=== PATIENT | male | born 1965 ===

== ENCOUNTER 2018-09-29 01:22 | Emergency (ER) | payer BC ==
[2018-09-29] MEDS ORDERED: Ketorolac 15 MG/ML SDV IVPUSH ONE (01:40)
[2018-09-29] MEDS ORDERED: Sodium Chloride 0.9% 10 ML Syringe FLUSH PRN (01:40)
[2018-09-29] MEDS ORDERED: Ondansetron 4 MG/2 ML SDV IVPUSH ONE (01:41)
[2018-09-29] MEDS ORDERED: methylPREDNISolone Sodium Succinate 125 MG/2 ML SDV IVPUSH ONE (01:41)
[2018-09-29] MEDS ORDERED: HYDROmorphone 1 MG/ML Syringe IVPUSH ONE (01:41)
[2018-09-29] MEDS ORDERED: Sodium Chloride 0.9% 1,000 ML IV SCH (01:45)
[2018-09-29 02:28] LABS: CHLORIDE,CL 104 mmol/L (98-107); SODIUM,NA 143 mmol/L (136-145)
[2018-09-29 02:29] LABS: ANION GAP 13.7 mmol/L (10-20)
--- NOTE | 2018-09-29 02:45 | EDM.PDOC ---
ED HPI GENERAL MEDICAL PROBLEM - General Chief Complaint: Flank Pain Stated Complaint: Right Flank Pain Time Seen by Provider: 09/29/18 01:39 Source of Information: Reports: Patient History Limitations: Reports: No Limitations - History of Present Illness INITIAL COMMENTS - FREE TEXT/NARRATIVE: Patient presents to the ED with complaints of bilateral lower back pain that started today. He states he was moving equipment yesterday and does have history of lower back pain chronically. Denies chest pain, SOB, abdominal pain. Also denies blood in urine or stools, no dysuria, frequency, or urine retention. No fever, chills, or general malaise. Onset: Today, Gradual Duration: Intermittent Location: Reports: Back Right Flank Pain Pain Score (Numeric/FACES): 5 - Related Data Allergies Allergy/AdvReac Type Severity Reaction Status Date / Time No Known Allergies Allergy Verified 09/29/18 01:35 Home Meds: Home Meds . [No Known Home Meds] 09/29/18 [History] ED ROS GENERAL - Review of Systems Review Of Systems: See Below Constitutional: Reports: No Symptoms HEENT: Reports: No Symptoms Respiratory: Reports: No Symptoms Cardiovascular: Reports: No Symptoms Endocrine: Reports: No Symptoms GI/Abdominal: Reports: No Symptoms : Reports: No Symptoms Musculoskeletal: Reports: Back Pain Skin: Reports: No Symptoms Neurological: Reports: No Symptoms Psychiatric: Reports: No Symptoms Hematologic/Lymphatic: Reports: No Symptoms Immunologic: Reports: No Symptoms ED EXAM,LOWER BACK PAIN/INJURY - Physical Exam Exam: See Below Exam Limited By: No Limitations General Appearance: Alert, WD/WN, No Apparent Distress Eye Exam: Bilateral Eye: EOMI, Normal Inspection Nose: Normal Inspection, Normal Mucosa, No Blood Throat/Mouth: Normal Inspection, Normal Lips, Normal Teeth, Normal Gums, Normal Oropharynx, Normal Voice, No Airway Compromise Head: Atraumatic, Normocephalic Neck: Normal Inspection, Supple, Non-Tender, Full Range of Motion Respiratory/Chest: No Respiratory Distress, Lungs Clear, Normal Breath Sounds, No Accessory Muscle Use, Chest Non-Tender Cardiovascular: Normal Peripheral Pulses, Regular Rate, Rhythm, No Edema, No Gallop, No JVD, No Murmur, No Rub GI/Abdominal: Normal Bowel Sounds, Soft, Non-Tender, No Organomegaly, No Distention, No Abnormal Bruit, No Mass Back Exam: Normal Inspection, Full Range of Motion, NT Extremities: Normal Inspection, Normal Range of Motion, Non-Tender, No Pedal Edema, Normal Capillary Refill Neurological: Alert, Normal Mood/Affect, Normal Dorsiflexion, CN II-XII Intact, Normal Plantar Flexion, Normal Gait, Normal Reflexes, No Motor/Sensory Deficits , Oriented x 3 Course - Vital Signs Last Recorded V/S: Last Vital Signs Temp 36.6 C 09/29/18 01:36 Pulse 97 09/29/18 01:36 Resp 14 09/29/18 01:36 BP 151/82 H 09/29/18 02:42 Pulse Ox 96 09/29/18 01:36 - Orders/Labs/Meds Labs: Laboratory Tests 09/29/18 09/29/18 09/29/18 Range/Units 02:05 02:05 02:27 WBC 11.6 H (4.0-10.0) x10^3/uL RBC 4.74 (4.5-6.0) x10^6/uL Hgb 16.2 (14.0-18.0) g/dL Hct 47.5 (40.0-52.0) % MCV 100.2 H (78.0-93.0) fL MCH 34.2 H (26.0-32.0) pg MCHC 34.1 (32.0-36.0) g/dL RDW Coeff of Cristian 12.6 (10.0-15.0) % Plt Count 267 (130-400) x10^3/uL Neut % (Auto) 55.2 (50.0-80.0) % Lymph % (Auto) 31.4 (25.0-50.0) % [place] % (Auto) 10.5 (2.0-11.0) % Eos % (Auto) 2.4 (0.0-4.0) % Baso % (Auto) 0.5 (0.2-1.2) % Sodium 143 (136-145) mmol/L Potassium 3.7 (3.5-5.1) mmol/L Chloride 104 (98-107) mmol/L Carbon Dioxide 29 (21-32) mmol/L Anion Gap 13.7 (10-20) mmol/L BUN 14 (7-18) mg/dL Creatinine 0.9 (0.70-1.30) mg/dL Est Cr Clr Drug Dosing 106.04 mL/min Estimated GFR (MDRD) > 60 Glucose 112 H (74-106) mg/dL Calcium 9.1 (8.5-10.1) mg/dL Corrected Calcium 9.10 (8.5-10.1) mg/dL Total Bilirubin 0.5 (0.2-1.0) mg/dL AST 18 (15-37) U/L ALT 39 (16-63) U/L Alkaline Phosphatase 80 (46-116) U/L Total Protein 7.2 (6.4-8.2) g/dL Albumin 4.0 (3.4-5.0) g/dL Globulin 3.2 Albumin/Globulin Ratio 1.25 Urine Color Yellow (YELLOW) Urine Appearance Clear (CLEAR) Urine pH 6.5 (5.0-8.0) Ur Specific [place] 1.020 Urine Protein Negative (NEGATIVE) mg/dL Urine Glucose (UA) Negative (NEGATIVE) mg/dL Urine Ketones Negative (NEGATIVE) mg/dL Urine Occult Blood Trace-lysed H (NEGATIVE) Urine Nitrite Negative (NEGATIVE) Urine Bilirubin Negative (NEGATIVE) Urine Urobilinogen 0.2 (0.2) EU/dL Ur Leukocyte Esterase Negative (NEGATIVE) Urine RBC Not seen (NOT SEEN) /HPF Urine WBC Not seen (NOT SEEN) /HPF Ur Squamous Epith Cells Not seen (NEGATIVE) /HPF Amorphous Sediment Few Urine Bacteria Not seen (NEGATIVE) /HPF Urine Mucus Not seen (NEGATIVE) /LPF Meds: Medications Discontinued Medications Generic Name Dose Route Start Last Admin Trade Name Freq PRN Reason Stop Dose Admin Cyclobenzaprine HCl 1 packet 09/29/18 02:57 09/29/18 03:03 Take Home: Cyclobenzaprine 10 Mg, 4 Tab Pack PO 09/29/18 02:58 1 packet ONETIME ONE Administration Hydromorphone HCl 1 mg 09/29/18 01:41 09/29/18 02:46 Dilaudid IVPUSH 09/29/18 01:42 Not Given ONETIME ONE Sodium Chloride 1,000 mls @ 999 mls/hr 09/29/18 01:45 09/29/18 02:24 Normal Saline IV 999 mls/hr ASDIRECTED THERESA Administration Ketorolac Tromethamine 15 mg 09/29/18 01:40 09/29/18 02:13 Toradol IVPUSH 09/29/18 01:41 15 mg ONETIME ONE Administration Methylprednisolone Sodium Succinate 125 mg 09/29/18 01:41 09/29/18 02:13 Solu-Medrol IVPUSH 09/29/18 01:42 125 mg ONETIME ONE Administration Ondansetron HCl 4 mg 09/29/18 01:41 09/29/18 02:46 Zofran IVPUSH 09/29/18 01:42 Not Given ONETIME ONE Prednisone 1 packet 09/29/18 02:57 09/29/18 03:03 Take Home: Prednisone 20 Mg, 2 Tab Pack PO 09/29/18 02:58 1 packet ONETIME ONE Administration Sodium Chloride 10 ml 09/29/18 01:40 Saline Flush FLUSH ASDIRECTED PRN Keep Vein Open - Radiology Interpretation Free Text/Narrative:: x-ray negative for acute injury/fracture/subluxation lab work negative for UTI or pyelonephritis Departure - Departure Time of Disposition: 03:13 Disposition: Home, Self-Care 01 Condition: Good Clinical Impression: Low back strain Qualifiers: Encounter type: initial encounter Qualified Code(s): S39.012A - Strain of muscle, fascia and tendon of lower back, initial encounter - Discharge Information *PRESCRIPTION DRUG MONITORING PROGRAM REVIEWED*: No *COPY OF PRESCRIPTION DRUG MONITORING REPORT IN PATIENT GRISELDA: No Instructions: Low Back Strain Referrals: PCP,Unobtain [Primary Care Provider] - Forms: ED Department Discharge Additional Instructions: Plan 1. Alternate ibuprofen and tylenol for pain relief. Alternate heat and cold 2. Take the flexeril every 8 hours, take prednisone one time a day 3. Follow up with primary care. You may need an MRI of your lower back. 4. Call with any questions or concerns - Problem List & Annotations (1) Low back strain SNOMED Code(s): 880151459 Code(s): S39.012A - STRAIN OF MUSCLE, FASCIA AND TENDON OF LOWER BACK, INIT Status: Acute Priority: Low Qualifiers: Encounter type: initial encounter Qualified Code(s): S39.012A - Strain of muscle, fascia and tendon of lower back, initial encounter - Problem List Review Problem List Initiated/Reviewed/Updated: Yes - Assessment/Plan Assessment:: Plan 1. Alternate ibuprofen and tylenol for pain relief. Alternate heat and cold 2. Take the flexeril every 8 hours, take prednisone one time a day 3. Follow up with primary care. You may need an MRI of your lower back. 4. Call with any questions or concerns
[2018-09-29] MEDS ORDERED: Take Home: Cyclobenzaprine 10 MG Tab, 4 Tab Pack PO ONE (02:57)
[2018-09-29] MEDS ORDERED: Take Home: predniSONE 20 MG, 2 Tab Pack PO ONE (02:57)
--- NOTE | 2018-09-29 07:46 | CR ---
[id number] RAD/RAD Lumbar Spine 2-3V Exam: RAD Lumbar Spine 2-3V Indication:MOVING THINGS, BACK INJURY. Comparison: No prior imaging for comparison. Discussion: No acute fracture or compression deformity. No spondylolisthesis. Mild changes of spondylosis. Impression: No acute findings. Leonel Winston MD 09/29/18 0745 Thank you for allowing us to participate in the care of your patient.
== END 2018-09-29 03:13 | disposition home or self-care (01) ==
LOC: VM.ED 01:22
DX: S39.012A Strain of muscle, fascia and tendon of lower back, initial encounter (principal); X58.XXXA Exposure to other specified factors, initial encounter
CPT/HCPCS: 36415; 72100; 80053; 81001; 85025; 96361; 96374; 96375; 99283; A9270; J1885; J2930; J7030

== ENCOUNTER 2020-01-11 20:59 | Emergency (ER) | payer BC ==
--- NOTE | 2020-01-11 23:47 | EDM.PDOC ---
ED HPI GENERAL MEDICAL PROBLEM - General Chief Complaint: Abdominal Pain Stated Complaint: STOMACH Time Seen by Provider: 01/11/20 22:00 Source of Information: Reports: Patient History Limitations: Reports: No Limitations - History of Present Illness INITIAL COMMENTS - FREE TEXT/NARRATIVE: Patient comes emergency department today from home with complaints of abdominal pain. This patient for the past 2 days has had increasing waves of cramping intermittent abdominal pain. Primarily in the right lower quadrant. He typically has a bowel movement every day he has not had 1 for the last 2 days. He does not feel bloated. He does not feel distended. He has had no nausea or vomiting. No fever or chills. He has no other pain in his abdomen other than the right lower quadrant. The pain is not constant. He did take some Ex-Lax earlier today thinking that he was constipated he had quite a bit much more pain but did not have a bowel movement. Said no recent surgeries on his abdomen and no surgeries in the past. He is never had a colonoscopy. No hematuria dysuria or urinary frequency. No chest pain no shortness of breath or difficulty breathing. No cough or congestion. No hematuria dysuria or urinary frequency. NO COVID exposure no COVID symptoms. Abdominal Pain Pain Score (Numeric/FACES): 2 - Related Data Allergies Allergy/AdvReac Type Severity Reaction Status Date / Time aspirin Allergy Nausea and Verified 01/12/20 00:20 Vomiting Home Meds: Home Meds . [No Known Home Meds] 09/29/18 [History] Past Medical History - Past Surgical History HEENT Surgical History: Reports: Tonsillectomy, Other (See Below) Other HEENT Surgeries/Procedures: [place] Teeth ED ROS GENERAL - Review of Systems Review Of Systems: Comprehensive ROS is negative, except as noted in HPI. ED EXAM, GI/ABD - Physical Exam Exam: See Below Exam Limited By: No Limitations General Appearance: Alert, WD/WN, No Apparent Distress, Obese (large obese abd. ) Respiratory/Chest: No Respiratory Distress, Lungs Clear Cardiovascular: Normal Peripheral Pulses, Regular Rate, Rhythm GI/Abdominal Exam: Normal Bowel Sounds, Soft, Pelvis Stable, Tender (He has some mild tenderness of the right lower quadrant. No rebound or guarding. The rest of the abdomen is soft nontender nondistended.). No: Distended, Guarding, Rigid, Rebound, Hernia (Male) Exam: Deferred Rectal (Males) Exam: Deferred Back Exam: Normal Inspection, Full Range of Motion Extremities: Normal Inspection, Normal Range of Motion, Non-Tender, No Pedal Edema, Normal Capillary Refill Neurological: Alert, Oriented, Normal Cognition, Normal Gait, No Motor/Sensory Deficits Psychiatric: Normal Affect, Normal Mood Skin Exam: Warm, Dry, Intact, Normal Color, No Rash Course - Vital Signs Last Recorded V/S: Last Vital Signs Temp 98 F 01/11/20 22:00 Pulse 96 01/11/20 22:00 Resp 18 01/11/20 22:00 BP 143/78 H 01/11/20 22:00 Pulse Ox 97 01/11/20 22:00 - Orders/Labs/Meds Meds: Medications Discontinued Medications Generic Name Dose Route Start Last Admin Trade Name Yenifer PRN Reason Stop Dose Admin Bisacodyl 10 mg 01/11/20 23:55 01/12/20 00:06 Dulcolax PO 01/11/20 23:56 10 mg ONETIME ONE Administration Polyethylene Glycol 68 gm 01/11/20 23:55 01/12/20 00:06 Miralax PO 01/11/20 23:56 68 gm ONETIME ONE Administration - Radiology Interpretation Free Text/Narrative:: X-ray of the abdomen per radiology shows nonobstructive bowel gas pattern no radiographic evidence of pneumoperitoneum. Moderate to large amount of retained stool in the ascending segment of the colon. Gaseous distention in the transverse segment correlate for constipation. - Re-Assessments/Exams Free Text/Narrative Re-Assessment/Exam: X-ray shows quite a bit of stool in the right ascending colon rather large amount when reviewed extemporaneously by myself. No air-fluid levels concerning for bowel obstruction. In his descending colon and rectal vault does not have any stool present. This is really especially with the peristaltic type waves of pain that he has having constipation. Although were unable to use an enema or suppository at all to help with this due to the location of the stool. We will aggressively manage him with MiraLAX tonight and ensure that he is drinking plenty of fluids. In the morning I would like him to take another 4 doses of MiraLAX like he did tonight as well as a dose of bisacodyl. Anything new or worse he develops a fever severe abdominal pain he is to recheck. He is understanding of this and his questions are answered. Departure - Departure Time of Disposition: 23:43 Disposition: Home, Self-Care 01 Clinical Impression: Constipation Qualifiers: Constipation type: unspecified constipation type Qualified Code(s): K59.00 - Constipation, unspecified - Discharge Information Instructions: Constipation, Adult, [id number] Referrals: PCP,None [Primary Care Provider] - Forms: ED Department Discharge Additional Instructions: Miralax, 4 capfuls in the morning in a large glass of water. To not only treat constipation but also make the Miralax work you must increase your water intake as much as possible over the next week. In the morning take the 10mg of Bisacodyl to help stimulate your bowels. Return to the ED if new or worsening symptoms. Follow up with PCP in the next 4-6 days if not improving sooner if worse.
[2020-01-11] MEDS ORDERED: Bisacodyl 5 MG Tab PO ONE (23:55)
[2020-01-11] MEDS ORDERED: Polyethylene Glycol 3350 Powder 17 GM Packet PO ONE (23:55)
--- NOTE | 2020-01-12 08:51 | CR ---
[id number] RAD/RAD Abd Flat and Upright 2V EXAM: RAD Abd Flat and Upright 2V INDICATION: ABD PAIN/ DISTENTION/ CONSTIPATION COMPARISON: None. DISCUSSION: Unobstructed bowel gas pattern. No radiographically evident pneumoperitoneum. Moderate to large amount of retained stool in the ascending segment of the colon. Gaseous distention in the transverse segment. Correlate for constipation. Vascular calcifications in the pelvis. IMPRESSION: As above. Leonel Winston MD 01/12/20 0850 Thank you for allowing us to participate in the care of your patient.
== END 2020-01-12 00:13 | disposition home or self-care (01) ==
LOC: VM.ED 20:59
DX: K59.00 Constipation, unspecified (principal); Z88.6 Allergy status to analgesic agent
CPT/HCPCS: 74019; 99283; A9270-GY